=== PATIENT | female | born 1945 | race Caucasian/White ===

== ENCOUNTER 2016-06-08 15:10 | Inpatient (IN) | payer MEDICARE ==
[~2016-06-08] VITALS: Ht 149.9 cm; Wt 95.0 kg
--- NOTE | ~2016-06-08 | ECH ---
Transthoracic Echocardiography Report (TTE) Demographics Patient Name WILVER DANIELS Date of Study 06/09/2016 Patient Number [id number] Visit Number [id number] Date of 1945 Room Number 411 Accession Number [id number] Gender Female Age 71 year(s) Referring Alfredo CASTÑAEDA Breakfast Bar Attendant Negrita Salgado Physician Zain Whipple MD Physician Interpreting Alfredo CASTAÑEDA Credit Support Specialist Physician Zain Supervising Ordering Physician Alfredo CASTAÑEDA MD/JER Pittman Nurse Stress Dairy Hand Conclusions Contractility Score Summary At rest the following contractility abnormalities were noted: Hypokinesis of the Mid leticia-lateral, the Mid anterior, the Mid leticia-septal, the Mid inferior, the Mid infero-lateral, the Basal infero-lateral, the Apical inferior, the Apical septal, the Basal leticia-septal, the Apical lateral, the Apical anterior, the Basal inferior, the Basal leticia-lateral and the Apical cap segments; Akinesis of the Mid infero-septal and the Basal infero-septal segments. Contractility of all other segments appeared normal. Summary Technically adequate exam. The estimated left ventricular ejection fraction is 40-45%. Mild to moderate concentric left ventricular hypertrophy. Diastolic assessment reveals Grade I diastolic dysfunction. Possible tiny perimembranous ventricular septal defect. Mild tricuspid regurgitation by color Doppler. There is mild pulmonary hypertension. The pulmonary pressure (RVSP) is 39 mmHg. Trivial anterior and posterior pericardial effusion. No fluid noted at apex. Mild mitral regurgitation by color Doppler. Recommendation The patient will be given the results of this study by the physician who ordered the exam. Procedure Type of Study TTE procedure:Echo Complete SF. Procedure Date Date: 06/09/2016 Start: 01:39 PM Technical Quality: Adequate visualization Indications:Dyspnea, Atrial fibrillation, Diabetes, Hypertension, elevated cardiac enzymes and Left Bundle Branch Block (LBBB). Appropriate Use Criteria: 9 Height: 59 inches Weight: 204 pounds BSA: 1.86 m Rhythm: Sinus with bundle branch block HR: 86 bpm BP: 110/55 mmHg M-Mode/2D Measurements LV Diastolic Dimension: 0.5 cm LV Systolic Dimension: 5.43 cm LV Septum Diastolic: 1.23 cm LV PW Diastolic: 1.31 cm AO Root Dimension: 2.67 cm Cardiac Output: 5.27 l/min LA Dimension: 4.06 cm Cardiac Index: 2.83 l/min*m RV Diastolic Dimension: 3.25 cm LA volume index: 31 ml/m Post Pericard Effusion: 0.4 cm LVOT: 1.91 cm LVOT VTI: 21.4 cm RV Base: 3 cm LV Stroke volume: 61.28 ml RV Mid: 1.6 cm LV Stroke volume index: 32.95 ml/m TAPSE: 2.4 cm TDI-S': 13 cm/s Doppler Measurements AV Peak Velocity: 2.1 m/s MV Peak E-Wave: 1.06 m/s AV Peak Gradient: 17.64 mmHg MV Peak A-Wave: 0.77 m/s AV Mean Gradient: 11.32 mmHg MV E/A Ratio: 1.37 LVOT Peak Velocity: 1.07 m/s MV P1/2t: 47.4 msec AV Area (Continuity):1.51 cm MV Deceleration Time: 161.6 msec TR Velocity:2.9 m/s MV Area (PHT): 4.64 cm TR Gradient:33.64 mmHg PV Peak Velocity: 1.23 m/s Estimated RAP:5 mmHg PV Peak Gradient: 6.04 mmHg Estimated RVSP: 39 mmHg Estimated PASP: 38.64 mmHg E' Septal Velocity: 0.07 m/s A' Septal Velocity: 0.11 m/s E' Lateral Velocity: 0.05 m/s A' Lateral Velocity: 0.08 m/s RA Area: 14.3 cm Findings Left Ventricle The left ventricle is normal in size . Mild to moderate concentric left ventricular hypertrophy. Diastolic assessment reveals Grade I diastolic dysfunction. Possible tiny perimembranous ventricular septal defect. Right Ventricle Normal right ventricle structure and function. Left Atrium Normal left atrial size. Right Atrium Normal right atrial size. Mitral Valve Mild mitral annular calcification. Mild mitral regurgitation by color Doppler. Aortic Valve The aortic valve is moderately sclerotic. Tricuspid Valve Normal tricuspid valve structure and function. Mild tricuspid regurgitation by color Doppler. There is mild pulmonary hypertension. The pulmonary pressure (RVSP) is 39 mmHg. Pulmonic Valve Normal pulmonic valve structure and function. Trivial pulmonic valve regurgitation by color Doppler. Pericardial Effusion Trivial anterior and posterior pericardial effusion. No fluid noted at apex. Miscellaneous Visualized portions of the aortic root and ascending aorta appear normal in size. Pleural Effusion No evidence of pleural effusion. Contractility Score LV regional wall motion:(0-Non visualized 1-Normal 2-Hypokinesis 3-Akinesis 4-Dyskinesis 5-Aneurysm) Signature
[~2016-06-08 15:10] MED LIST: ASA325 MG PO; BENADRYL ITCH28.3 G1 TP; COMBIVENT IH; COUMADIN5 MG PO; DILTIAZEM ER120 M1 PO; FLONASE 0.05% D16 GM NS; GLUCAGON1 MG/ML SQ; GLUTOSE 1537.5 GM PO; HUMALOG KW200 UNIT/1 SQ; LANOXIN DPS0.125 MG PO; MAG-OX400 MG PO; NASONEX NASAL S17 GM NS; PENNSAID112 GM TP; PROTONIX40 MG PO; SYNTHROID175 MCG PO; THERAPEUTIC MUL1 TAB PO; TOUJEO SOL300 UNIT/1 SQ; TYLENOL DPS325 MG PO; ULTRAM DPS50 MG PO; ZYLOPRIM-DPS300 MG PO
--- NOTE | 2016-06-13 11:01 | CO ---
ADMIT: 06/08/2016 RM/LOC: 411 [facility] MR#: [id number] [address] [address] RHIANNA DANIELS [address] [place] [address] Consultation SEX: F AGE: 71 : 1945 DATE OF CONSULTATION: 06/09/2016 ATTENDING PHYSICIAN: Chris Ellis CONSULTING PHYSICIAN: Zain Fuentes MD REASON FOR CONSULT: Difficulty breathing. HISTORY OF PRESENT ILLNESS: Rhianna is a 71-year-old female who presented to the ER complaining of gradual increased pain in her left lower extremity after she fell backwards twice. She denies having any chest pain, dizziness, palpitations, and syncope. She reports feeling her body felt "cold" and she felt short of breath after she fell. She complains of left leg pain. She denies any abdominal pain, nausea, vomiting. She has been seen by Dr. Li on 10/18/2015, for paroxysmal atrial fibrillation. Her last echo was done on 12/21/2013, and it showed ejection fraction of 0.45. Troponin level in the ER on admission was 0.297. BNP was 2777. INR was therapeutic at 2.4. She was placed on sepsis protocol in the ER due to her fever and numerous medical problems and previous cellulitis and sepsis. PAST MEDICAL HISTORY: PE, DVT, GI bleed, atrial fibrillation, COPD, insulin- dependent diabetes, CHF, NM, sleep apnea, hypothyroidism, venous stasis, cellulitis, hypertension, acute kidney injury, morbid obesity, digoxin toxicity. PAST SURGICAL HISTORY: Includes heart catheterization, hysterectomy. ALLERGIES: COREG, PENICILLIN, VANCOMYCIN, AND BETA-BLOCKERS. MEDICATIONS: 1. Lasix 80 mg b.i.d. 2. Mag-Ox 400 mg b.i.d. 3. Levothyroxine 175 mcg daily. 4. Lisinopril 5 mg daily. 5. KCl 20 mEq b.i.d. 6. Protonix 40 mg b.i.d. 7. Diltiazem 120 mg daily. 8. Coumadin 4 mg daily. 9. Digoxin 0.125 mg two tabs p.o. daily. 10.Allopurinol 300 mg daily. FAMILY HISTORY: Significant for CHF and coronary artery disease. SOCIAL HISTORY: The patient is a former smoker, but she quit 40 years ago. She denies alcohol and drug abuse. She denies any special diets. REVIEW OF SYSTEMS: GENERAL: Denies fatigue, fever, chills, sweats, rash, or ADMIT: 06/08/2016 RM/LOC: 411 [facility] MR#: [id number] [address] [address] [facility] [address] [place] [address] Consultation SEX: F AGE: 71 : 1945 weight loss. EYES: Denies double vision, blurred vision, cataracts, or glaucoma. ENT: Denies hearing loss or problems with nose, mouth or throat. PULMONARY: Denies cough, sputum production, asthma, emphysema or bronchitis. Denies snoring loudly, wakefulness at night, or fatigue upon awakening. GASTROINTESTINAL: Denies heartburn or difficulty swallowing. No change in bowel habits. Denies dark or bloody stools. No history of ulcers, hiatal hernia, or gallbladder or liver disease. GENITOURINARY: Denies dysuria, hematuria, nocturia, urinary tract infection, or kidney stones. Denies history of renal insufficiency or failure. MUSCULOSKELETAL: Swelling and pain, lower extremities bilaterally. Denies history of arthritis or gout. ENDOCRINE: Denies history of thyroid dysfunction or diabetes. HEMATOLOGIC: Denies history of anemia, easy bruising, or cancer. NEUROLOGIC: Denies chronic headaches, dizziness, syncope, stroke, seizures or numbness or tingling. PSYCHIATRIC: Denies history of mental illness or feelings of depression. PHYSICAL EXAMINATION: VITAL SIGNS: Blood pressure 101/47, pulse 84, respirations 18, temperature 97.4, oxygenation 92% on room air. SKIN: Hospers, warm and dry. EYES: Sclerae clear. No xanthelasmas. ENT: Oral mucosa is pink and moist. No jugular venous distention or carotid bruits. CHEST: Respirations are even and unlabored. Lungs are clear to auscultation. HEART: 2/6 systolic ejection murmur. ABDOMEN: Soft and nontender. Moderate obesity. MUSCULOSKELETAL: Gait is normal. EXTREMITIES: Left moderate edematous and erythematous lower extremity and right mild lower extremity edema. Peripheral pulses palpable. No clubbing or cyanosis. PSYCHIATRIC: Alert and oriented. Mood and affect are appropriate. DIAGNOSTIC DATA: Sodium 140, potassium 3.8, chloride 102, carbon dioxide 31, BUN 25, creatinine 1.0, CK 81, MB 1.0, troponin 0.703, proBNP 2777, PTT 22.3, INR 2.10. ASSESSMENT AND PLAN: Per Dr. Fuentes: 1. Sepsis. ADMIT: 06/08/2016 RM/LOC: 411 [facility] MR#: [id number] [address] [address] [facility] [address] [place] [address] Consultation SEX: F AGE: 71 : 1945 2. Cellulitis. 3. Elevated troponin. No ischemia symptoms are present. EKG shows an old left bundle branch block. Suspect elevated troponin is due to sepsis. 4. Edema. Worsened with cellulitis. The patient is receiving IV fluids for sepsis. Eventually will need diuresis. 5. History of left bundle branch block. 6. History of deep vein thrombosis. The patient is on Coumadin. We will check an echo for the patient's dyspnea symptoms. We will recheck an EKG in the morning. Thank you for the consult. AUBREY Candelario Student / Zain Fuentes MD / jennifer JOB #: [id number] CC: Chris Ellis, Attending Physician Chris Ellis, Family Physician
[2016-06-13] MEDS ORDERED: SYNTHROID DP0.175 MG PO (18:15)
[2016-06-13] MEDS ORDERED: LASIX DPS80 MG PO (18:15)
[2016-06-13] MEDS ORDERED: MAG-OX400 MG PO (18:15)
[2016-06-13] MEDS ORDERED: ZESTRIL5 MG PO (18:16)
[2016-06-13] MEDS ORDERED: KLOR-CON M2020 ME1 PO (18:16)
[2016-06-13] MEDS ORDERED: [UNRECOGNIZED DRUG - OTHER] PO (18:16)
[2016-06-13] MEDS ORDERED: PROTONIX40 MG PO (18:16)
[2016-06-13] MEDS ORDERED: COUMADIN4 MG PO (18:16)
[2016-06-13] MEDS ORDERED: LANOXIN DPS0.125 MG PO (18:17)
[2016-06-13] MEDS ORDERED: ZYLOPRIM-DPS300 MG PO (18:17)
[2016-06-13] MEDS ORDERED: NOVOLOG100 UNIT/2 SQ (18:18)
[2016-06-13] MEDS ORDERED: NOVOLOG100 UNIT/2 PO (18:18)
[2016-06-13] MEDS ORDERED: TOUJEO SOL300 UNIT/1 SQ (18:19)
[2016-06-13] MEDS ORDERED: NYSTATIN15 GM TP (18:19)
[2016-06-13] MEDS ORDERED: VIBRAMYCIN-DPS100 M2 PO (18:20)
--- NOTE | 2016-06-14 11:31 | HP ---
ADMIT: 06/08/2016 RM/LOC: 411 [facility] MR#: [id number] [address] [address] WILVER DANIELS [address] [place] [address] History and Physical SEX: F AGE: 71 : 1945 DATE OF SERVICE: CHIEF COMPLAINT: 1. Left lower extremity cellulitis. 2. Fall. 3. Sepsis. HISTORY OF PRESENT ILLNESS: The patient is a 71-year-old, female, usually gets her care from Dr. Pérez, who presented to the ER after a couple minor falls with some left leg pain. She states she has had progressively worsening left lower extremity erythema over the last couple weeks. She denies any other symptoms. She denies any sort of head injury. No loss of consciousness. No other pain in any other extremities or her back. She states she is otherwise doing well. She does note a slight fever. In the ER, she was found to have an elevated white count and they were very gentle with fluid given her history of CHF and rather complicated past medical history. PAST MEDICAL HISTORY: Includes PE, DVT, GI bleed, atrial fibrillation, COPD, insulin-dependent diabetes, CHF, ID, sleep apnea, hypothyroidism, venous stasis, cellulitis, hypertension as well as acute kidney injury, morbid obesity, digoxin toxicity. PAST SURGICAL HISTORY: Include heart catheterization, , hysterectomy. ALLERGIES: INCLUDE COREG, PENICILLIN, VANCOMYCIN, AND BETA-BLOCKERS. MEDICATIONS: Include: 1. Lasix 80 mg b.i.d. 2. Mag-Ox 400 mg t.i.d. 3. Levothyroxine 175 mcg daily. 4. Lisinopril 5 mg daily. 5. KCl 20 mEq b.i.d. 6. Protonix 40 mg b.i.d. 7. Diltiazem 120 mg daily. 8. Coumadin 4 mg daily. 9. Digoxin 0.125 mg two tabs p.o. daily. 10.Allopurinol 300 mg daily. FAMILY HISTORY: Significant for CHF and coronary artery disease. REVIEW OF SYSTEMS: Positive for fevers, chills, and left lower extremity leg pain. She denies chest pain, shortness of breath, headaches, nausea, vomiting, numbness, tingling, vision changes, or melena. SOCIAL HISTORY: She notes prior tobacco use. She denies drug or alcohol use. She is . She has several children who are very active at [employer] in multiple managing positions. ADMIT: 06/08/2016 RM/LOC: 411 [facility] MR#: [id number] [address] [address] [facility] [address] [place] [address] History and Physical SEX: F AGE: 71 : 1945 PHYSICAL EXAMINATION: VITAL SIGNS: Blood pressure 140/58, pulse 109, respirations 23, temperature 101, O2 sats 93%. GENERAL: She is alert, awake, oriented, pleasant, very conversive discussing various job titles and management of her children and grandchildren at [employer]. HEENT: Head is normocephalic, atraumatic. Pupils round and reactive to light. Extraocular muscles intact. HEART: Tachycardic. Regular rhythm. Positive murmur, which is chronic. LUNGS: Clear to auscultation bilaterally. ABDOMEN: Soft, nontender, nondistended. Morbidly obese. EXTREMITIES: No clubbing, cyanosis. She has 1+ bilateral lower extremity edema with significant erythema, worse on the left lower extremity with chronic venous stasis changes. NEURO: Cranial nerves II through XII grossly intact. No focal motor or sensory deficits. 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 Normal dorsal and plantar flexion of her feet. LABORATORY DATA AND IMAGING: Chest x-ray, unchanged. Procalcitonin 2.5, sodium 141, potassium 4, chloride 99, CO2 is 29, BUN is 25, glucose 238, creatinine 1.2, calcium 8.4, phosphorus 1.9, bilirubin is 0.6, total protein 7.5, albumin 3.2, alk phos 78, AST is 28, ALT is 25, mag is 1.7. CK is 70, MB is 1.4, troponin is 0.297, BNP is 2777, INR is 2.4, lactic acid 3.2. Blood cultures, no growth. UA is negative. White count is 19.9, hemoglobin 15, platelets 184. Urine cultures pending. ASSESSMENT: This is a 71-year-old female with: 1. Sepsis. 2. Elevated troponin. 3. Left lower extremity cellulitis. 4. History of pulmonary embolism and deep vein thrombosis, currently on ADMIT: 06/08/2016 RM/LOC: 411 [facility] MR#: [id number] [address] [place] [id number] [facility] [address] [place] [address] History and Physical SEX: F AGE: 71 : 1945 anticoagulation. 5. History of congestive heart failure. 6. History of gastrointestinal bleed. 7. Atrial fibrillation. 8. Chronic obstructive pulmonary disease. PLAN: We will continue gentle IV fluid resuscitation. We will start her on IV antibiotics. Trend her cardiac enzymes. Monitor blood work. We will x- ray the leg given the pain and history of osteo. We will keep an eye on her sugars. We will repeat lactic acid. We will consult Cards in the morning for sepsis with need for fluid resuscitation as well as known CHF in the setting of mildly elevated troponin. Chris Ellis MD/ jennifer JOB #: [id number] CC: Chris Ellis, Attending Physician Chris Ellis, Family Physician
--- NOTE | 2016-06-16 10:42 | CO ---
ADMIT: 06/08/2016 RM/LOC: 411 [facility] MR#: [id number] [address] [address] WILVER UNGER [address] [place] [address] Consultation SEX: F AGE: 71 : 1945 DATE OF CONSULTATION: 06/09/2016 ATTENDING PHYSICIAN: Chris Ellis CONSULTING PHYSICIAN: Gabbie Morley MD REASON FOR CONSULT: Left leg cellulitis. Thank you, Dr. Ellis, for the consult and involving me in this patient's care. HISTORY OF PRESENT ILLNESS: Ms. Unger is a 71-year-old woman, who presented to the ER yesterday with complaint of fall and left leg pain. She complained of getting progressively weaker since last few days and fell down yesterday and hit on her buttocks. She also complained of worsening left leg pain and redness since last few days. She was started on meropenem and clindamycin and today she feels much better. She was also found to have elevated troponins which was thought to be secondary to sepsis. PAST MEDICAL HISTORY: Includes: 1. DVT. 2. Pulmonary embolism. 3. Atrial fibrillation. 4. COPD. 5. Diabetes mellitus. 6. CHF. 7. History of myocardial infections. 8. Sleep apnea. 9. Hypothyroidism. 10.Cellulitis. 11.Hypertension. 12.Acute kidney injury. 13.Obesity. PAST SURGICAL HISTORY: 1. . 2. Hernia repair. 3. Hysterectomy. ALLERGIES: COREG. PENICILLIN CAUSES RASH, AND VANCOMYCIN. CURRENT MEDICATIONS: Include: 1. Cardizem. 2. Coumadin. 3. Lanoxin. 4. Magnesium oxide. 5. Protonix. 6. Synthroid. 7. Levemir insulin sliding scale. ADMIT: 06/08/2016 RM/LOC: 411 [facility] MR#: [id number] [address] [address] WILVER UNGER [address] [place] [address] Consultation SEX: F AGE: 71 : 1945 8. Clindamycin 600 mg every 6 hours. 9. Meropenem 1 g every 12 hours. FAMILY HISTORY: Significant for heart disease in her father and lung cancer in her brother. REVIEW OF SYSTEMS: A 10-point review of systems negative except as mentioned in HPI. SOCIAL HISTORY: She lives at home with her significant other. Denies any smoking, alcohol, or recreational drug use. PHYSICAL EXAMINATION: VITAL SIGNS: Current temperature 97.5, T-max 100.8, blood pressure 110/55, respirations 18, heart rate 88, and 95% on room air. GENERAL: In no acute distress. HEENT: Head is normocephalic and atraumatic. Extraocular movements intact. CHEST: Decreased breath sounds at bases. No wheezes, rales, or rhonchi. CARDIOVASCULAR: S1 and S2 heard. A 3/6 systolic murmur. LYMPH: No palpable anterior/posterior cervical or supraclavicular lymphadenopathy. ABDOMEN: Soft, obese, and nontender. Abdominal hernia. Active bowel sounds. EXTREMITIES: There is diffuse erythema in the left lower extremity, and dry cracked skin noted on bilateral feet. The left leg is tender to palpation with increased warmth and erythema. There are chronic venous stasis changes on the right lower extremity. PSYCH: Normal affect. Memory intact. DATA REVIEW: CBC today shows white count of 22.1, hemoglobin 13.4, and platelets of 176. CMP shows creatinine of 1. Normal AST and ALT. Albumin of 2.7. Left ankle x-ray showed anterior subluxation of fibula. Blood and urine cultures have been no growth to date. ADMIT: 06/08/2016 RM/LOC: 411 [facility] MR#: [id number] [address] [address] WILVER UNGER [address] [place] [address] Consultation SEX: F AGE: 71 : 1945 ASSESSMENT AND PLAN: 1. Sepsis likely secondary to left leg cellulitis. I will stop the clindamycin and meropenem and change to ceftaroline 600 mg twice daily for now. I will narrow the antibiotics once culture is finalized. 2. Status post fall. 3. History of atrial fibrillation. 4. History of pulmonary embolism and deep vein thrombosis on anticoagulation. 5. Chronic obstructive pulmonary disease. 6. Obesity. Thank you for the consult and I will continue to follow the patient. Gabbie Morley MD/ jennifer JOB #: [id number] CC: Chris Ellis, Attending Physician Chris Ellis, Family Physician
--- NOTE | 2016-06-27 18:59 | ER ---
ADMIT: 06/08/2016 RM/LOC: 411 [facility] MR#: [id number] [address] [address] WILVER DANIELS [address] [place] [address] Emergency Room Report SEX: F AGE: 71 : 1945 DATE: 06/08/2016 CHIEF COMPLAINT: Left leg pain, and fell. HISTORY OF PRESENT ILLNESS: The patient is a 71-year-old female with multiple medical problems, who presents to the ER complaining of gradual increased pain in her left lower extremity, which was worse since she lost her balance and tripped on the steps earlier today. She denies that she is having any chest pain at this time, is not having any difficulty breathing more than her baseline. She denies any abdominal pain, nausea, vomiting. She does state that she has felt warm, but has not been taking her temperature. She denies any change in bowel or bladder function. REVIEW OF SYSTEMS: A 10-point review of systems is done and is otherwise negative except as in HPI. PAST MEDICAL HISTORY: Significant for diabetes, history of acute kidney injury, hypertension, venous stasis, previous cellulitis with debridement of left lower extremity, CHF, DVT, PE, AFib, COPD. MEDICATIONS: See nurse's note. As noted, she is on Coumadin. ALLERGIES: SEVERAL INCLUDING PENICILLIN, VANCOMYCIN. SOCIAL HISTORY: States she smoked as a teenager, but has not smoked in 50 years. Denies drug or alcohol use. PHYSICAL EXAMINATION: VITAL SIGNS: Blood pressure is 146/71, heart rate of 132, respirations 30, temp 102.3, sats 92% on room air. GENERAL: The patient is alert, oriented, no distress. HEENT: Head is atraumatic. Airway is patent. HEART: Tachycardic, but regular. LUNGS: Clear to auscultation. ABDOMEN: Obese, nontender. EXTREMITIES: Bilateral lower extremities show that she has erythema below the knee on both lower extremities, more so on the left than the right. She has had weeping from the left lower extremity and tenderness in her anterior tibial region. Both lower extremities are warm, left more so than right. The findings of her left lower extremity are consistent with cellulitis. LABORATORY DATA AND IMAGING: White count is 19.9, otherwise CBC is unremarkable. BUN is 25, glucose is 238, creatinine is 1.2, CK is 70, troponin is 0.297, BNP is 2777. Urinalysis was unremarkable. INR was therapeutic at 2.4. Lactic acid was elevated at 3.2. Procalcitonin 2.5. EKG shows sinus tachycardia rhythm with a wide QRS, which is compared to previous EKG from October of 2015 and appears very similar. Chest x-ray shows nothing acute. EMERGENCY DEPARTMENT COURSE: We went ahead and did a sepsis routine on the ADMIT: 06/08/2016 RM/LOC: 411 [facility] MR#: [id number] [address] [place] [id number] [facility] [address] [place] [address] Emergency Room Report SEX: F AGE: 71 : 1945 patient due to her fever and her numerous medical problems and previous cellulitis and sepsis. She was not hypotensive in the Emergency Department, but did get a gentle 500 mL of fluid bolus as her lactic acid was 3.2. I do believe that she could be early septic from her cellulitis on her left lower extremity. She is treated with clindamycin IV in the Emergency Department as she has numerous antibiotic allergies. She normally sees Dr. Pérez. I have admitted the patient to [facility] and contacted Dr. Chris Ellis, who will be admitting the patient to PCU with a; DIAGNOSES: 1. Fever. 2. Left lower extremity cellulitis. 3. Sepsis. 4. Congestive heart failure. 5. Elevated troponin. Kelvin Jackson MD/ jennifer JOB #: [id number] CC: Chris Ellis MD, Attending Physician Chris Ellis MD, Family Physician
--- NOTE | 2016-07-18 10:36 | DS ---
ADMIT: 06/08/2016 RM/LOC: 411 [facility] MR#: [id number] [address] [address] [facility] [address] [place] [address] General Discharge Summary SEX: F AGE: 71 : 1945 ADMISSION DATE: 06/08/2016 DISCHARGE DATE: 06/13/2016 DISCHARGE DIAGNOSES: Include: 1. Sepsis secondary to left lower extremity cellulitis. 2. Elevated troponin. 3. Congestive heart failure. 4. History of pulmonary embolism and deep venous thrombosis, currently on anticoagulation. 5. History of gastrointestinal bleed. 6. Atrial fibrillation. 7. Chronic obstructive pulmonary disease. 8. History of left bundle-branch block. 9. Hypokalemia. 10.Obesity. CONSULTANTS: 1. Cardiology, Dr. Fuentes. 2. Infectious Disease, Dr. Morley. HISTORY OF PRESENT ILLNESS: Please see admission H and P dated 06/08/2016. HOSPITAL COURSE: The patient was admitted, gentle IV fluid resuscitation given her history. Cardiac enzymes were trended. She was given IV antibiotics. Cardiology was consulted. Diuretics and nephrotoxic agents were held. The patient was urgently given Merrem and clindamycin. She had fair amount of allergies. Cardiology ordered an echo. Infectious Disease changed her antibiotics to ceftaroline. Wound Care saw the patient. PT/OT continued to work with the patient for strengthening. The patient was subsequently given IV diuresis . Chest CT was ordered. IV diuresis was continued. She was given 2 L fluid restriction. The patient determined safe discharge on with close follow up with Infectious Disease as well as Cardiology. MEDICATIONS: Please see discharge JUN. PROCEDURES: None. LABORATORY DATA: On 06/12/2016, white count 7.9, hemoglobin 12.9, and platelets 190. On 06/08/2016, white count 19.9, hemoglobin 15, and platelets 184. INR on 06/03/2016 is 1.1, 06/12/2016 is 1.25, 06/11 is 1.42, 06/10 is 2.13. On 06/13/2016, sodium 143, potassium 3.9, chloride 105, CO2 of 29, BUN 24, glucose 146, creatinine 0.7, calcium is 8.2, and Mag is 2.2. Phos on 06/09/2016 was 2.3. Digoxin on 06/08/2016 was 1.48. Lactic acid on 06/08/2016 was 2.7. Troponin on 06/09/2016 was 0.7, on 06/08/2016 was 0.748. ProBNP on was 2777, procalcitonin was 2.5. Troponin on 06/08/2016 was 0.297. Hemoglobin A1c on 06/08/2016 was 8.2. Blood cultures no growth x2 on 06/08/2016. Urine culture, no growth on 06/08/2016. CT chest showed on 06/11/2016 mild bibasilar atelectasis. No focal consolidations or pleural effusions. Cardiomegaly. No imaging evidence of acute cardiac decompensation ADMIT: 06/08/2016 RM/LOC: 411 [facility] MR#: [id number] [address] [address] [facility] [address] [place] [address] General Discharge Summary SEX: F AGE: 71 : 1945 CHF, additional findings described in body. So left lower leg 06/08/2016, negative for fracture nonspecific soft tissue swelling. Left ankle shows 06/09/2016 left ankle degenerative changes, anterior subluxation of the fibula probably related to positioning. No definite fracture. On 06/10/2016, chest x- ray persistent infiltrate, left lower lobe. Echo on 06/09/2016 EF 40% to 45%, [id number] concentric LVH, diastolic grade 1 dysfunction, possible tiny perimembranous ventricular septal defect, mild tricuspid regurg by color Doppler, mild pulmonary hypertension, pulmonary pressure 39, trivial anterior and posterior pericardial effusion. No fluid noted at the apex, mild mitral regurg by color Doppler. EKG on 06/08/2016 shows a sinus tachycardia with possible biatrial enlargement, left axis deviation defect, possible inferior infarct old, left LVH. Follow up in 1 week with Infectious Disease. 1-2 weeks with [facility]ORIA, CBC, BMP, and INR on 06/16. PCP in three days. The patient was discharged on doxycycline. Chris Ellis MD/ jennifer JOB #: [id number] CC: Chris Ellis MD, Attending Physician Chris Ellis MD, Family Physician MD Gabbie Mayen MD
[2016-12-11] MEDS ORDERED: DELTASONE DPS20 MG PO (14:20)
[2016-12-11] MEDS ORDERED: DUONEB DPS3 ML IH (14:21)
[2016-12-11] MEDS ORDERED: LEVEMIR100 UNIT/1 SQ (14:22)
== END 2016-06-13 10:54 | disposition home or self-care (01) | DRG 872 ==
LOC: ER 15:10 → 4PCU 17:40
PROVIDERS: ADMIT Family Medicine
DX: A41.9 Sepsis, unspecified organism (principal); L03.116 Cellulitis of left lower limb; Z68.41 Body mass index [BMI] 40.0-44.9, adult; I11.0 Hypertensive heart disease with heart failure; I50.22 Chronic systolic (congestive) heart failure; I48.0 Paroxysmal atrial fibrillation; B37.49 Other urogenital candidiasis; J44.9 Chronic obstructive pulmonary disease, unspecified; E11.9 Type 2 diabetes mellitus without complications; E03.9 Hypothyroidism, unspecified; E87.6 Hypokalemia; E66.01 Morbid (severe) obesity due to excess calories; R79.89 Other specified abnormal findings of blood chemistry; I44.7 Left bundle-branch block, unspecified; G47.30 Sleep apnea, unspecified; I87.8 Other specified disorders of veins; Z86.718 Personal history of other venous thrombosis and embolism; Z86.711 Personal history of pulmonary embolism; Z87.891 Personal history of nicotine dependence; Z79.4 Long term (current) use of insulin; I25.2 Old myocardial infarction; Z82.49 Family history of ischemic heart disease and other diseases of the circulatory system; Z91.81 History of falling; Z79.01 Long term (current) use of anticoagulants